=== PATIENT | male | born 1995 | race Caucasian/White ===

== ENCOUNTER 2016-05-29 15:49 | Emergency (ER) | payer OTHER ==
[~2016-05-29] VITALS: Ht 180.3 cm; Wt 200.0 kg
[~2016-05-29 15:49] MED LIST: ASPI1TAB14 PO
[2016-05-29 18:50] VITALS: BP 150/64
== END 2016-05-29 18:51 | disposition home or self-care (01) ==
LOC: EMS 15:53
DX: K02.9 Dental caries, unspecified (principal); J45.909 Unspecified asthma, uncomplicated
CPT/HCPCS: 99283

== ENCOUNTER 2016-07-04 22:03 | Emergency (ER) | payer OTHER ==
[~2016-07-04] VITALS: Ht 182.9 cm; Wt 113.6 kg
[2016-07-04 22:23] VITALS: BP 117/86
== END 2016-07-05 00:08 | disposition left against medical advice (07) ==
LOC: EMS 22:04
DX: K08.89 Other specified disorders of teeth and supporting structures (principal); J45.909 Unspecified asthma, uncomplicated

== ENCOUNTER 2016-11-01 22:22 | Emergency (ER) | payer SELFPAY ==
[~2016-11-01] VITALS: Ht 180.3 cm; Wt 86.0 kg
[2016-11-01] MEDS ORDERED: ALBU8HFA IH (22:26)
[2016-11-01] MEDS ORDERED: ALBUTEROL SULFATE 2.5 MG/0.5 ML NEB SOLUTION NEB ONE (22:45)
[2016-11-01] MEDS ORDERED: IPRATROPIUM BROMIDE 0.5 MG/2.5 ML NEB SOLUTION NEB ONE (22:45)
[2016-11-01] MEDS ORDERED: PredniSONE 20 MG TABLET PO ONE (23:15)
[2016-11-01 23:22] VITALS: BP 142/62
== END 2016-11-01 23:24 | disposition home or self-care (01) ==
LOC: EMS 22:24
DX: J45.909 Unspecified asthma, uncomplicated (principal); R03.0 Elevated blood-pressure reading, without diagnosis of hypertension
CPT/HCPCS: 94640; 99283; J7512; J7613

== ENCOUNTER 2019-01-12 04:51 | Emergency (ER) | payer SELFPAY ==
[~2019-01-12] VITALS: Ht 180.3 cm; Wt 104.5 kg
[~2019-01-12 04:51] MED LIST changes: +ALBU8HFA IH; -ASPI1TAB14 PO
[2019-01-12] MEDS ORDERED: FLUT110HFA IH (05:04)
[2019-01-12] MEDS ORDERED: IPRATROPIUM BROMIDE 0.5 MG/2.5 ML NEB SOLUTION NEB ONE (05:15)
[2019-01-12] MEDS ORDERED: ALBUTEROL SULFATE 2.5 MG/0.5 ML NEB SOLUTION NEB ONE (05:15)
[2019-01-12 06:15] VITALS: BP 117/72
[2019-01-12] MEDS ORDERED: PredniSONE 20 MG TABLET PO ONE (06:15)
[2019-01-12] MEDS ORDERED: ALBUTEROL SULFATE HFA 90 MCG/PUFF 8 GM INHALER IH ONE (06:15)
== END 2019-01-12 06:40 | disposition home or self-care (01) ==
LOC: EMS 04:55
DX: J45.901 Unspecified asthma with (acute) exacerbation (principal)
CPT/HCPCS: 94640; 99284; J7512; 94060; J3535

== ENCOUNTER 2019-04-23 16:09 | Emergency (ER) | payer MEDICAID ==
[~2019-04-23] VITALS: Ht 180.3 cm; Wt 81.8 kg
[~2019-04-23 16:09] MED LIST changes: -ALBU8HFA IH; +FLUT110HFA IH
[2019-04-23] MEDS ORDERED: DEXAMETHASONE 4 MG TABLET PO ONE (17:15)
[2019-04-23] MEDS ORDERED: ALBUTEROL SULFATE HFA 90 MCG/PUFF 8 GM INHALER IH ONE (17:15)
[2019-04-23] MEDS ORDERED: ALBUTEROL SULFATE 2.5 MG/0.5 ML NEB SOLUTION NEB ONE (17:15)
[2019-04-23] MEDS ORDERED: IPRATROPIUM BROMIDE 0.5 MG/2.5 ML NEB SOLUTION NEB ONE (17:15)
[2019-04-23 18:51] VITALS: BP 123/68
== END 2019-04-23 19:25 | disposition home or self-care (01) ==
LOC: EMS 16:10
DX: J45.909 Unspecified asthma, uncomplicated (principal)
CPT/HCPCS: 71046; 94640; 99284; J8540; J3535

== ENCOUNTER 2019-06-22 00:23 | Emergency (ER) | payer SELFPAY ==
[~2019-06-22] VITALS: Ht 180.3 cm; Wt 86.4 kg
[2019-06-22] MEDS ORDERED: ALBU8HFA IH (00:31)
[2019-06-22] MEDS ORDERED: ONDANSETRON HCL 4 MG/2 ML VIAL IVP ONE (01:30)
[2019-06-22] MEDS ORDERED: ONDANSETRON HCL 4 MG TABLET PO ONE (02:00)
[2019-06-22 02:17] LABS: APPEARANCE,URINE CLEAR (CLEAR); GLUCOSE, URINE (UA) 100 mg/dL (NEGATIVE); KETONES,URINE 15 mg/dL (NEGATIVE); LEUKOCYTE ESTERASE ,URINE NEGATIVE (NEGATIVE); NITRATE,URINE NEGATIVE (NEGATIVE); OCCULT BLOOD,URINE NEGATIVE (NEGATIVE); PROTEIN,URINE SEE CONFIRM (NEGATIVE)
[2019-06-22 02:21] LABS: BILIRUBIN,URINE PRELIM. POSITIVE (NEGATIVE)
[2019-06-22 02:25] LABS: ALANINE AMINOTRANSFERASE 25 U/L (12-78); ALBUMIN 5.1 g/dL (3.4-5.0); ALKALINE PHOSPHATASE 76 U/L (46-116); ANION GAP 11 mmol/L (8-16); ASPARTATE AMINOTRANSFERASE 17 U/L (15-37); BILIRUBIN,TOTAL 1.4 mg/dL (0.1-1.0); CALCIUM, TOTAL 9.9 mg/dL (8.8-10.5); CARBON DIOXIDE 36 mmol/L (22-29); CHLORIDE 85 mmol/L (98-107); CREATININE 1.44 mg/dL (0.60-1.30); GLOMERULAR FILTR. RATE CALC > 60 mL/min (>60); GLUCOSE,RANDOM 105 mg/dL (70-110); HCG,QUANTITATIVE < 1 mIU/mL (0-6); LIPASE 86 U/L (73-393); SODIUM SERUM 132 mmol/L (136-145); UREA NITROGEN, BLOOD 15 mg/dL (7-18)
[2019-06-22 02:36] LABS: MEAN CORPUSCULAR HEMOGLOBIN 30.6 pg (26.0-34.0); MEAN CORPUSCULAR VOLUME 87 fL (80-100); PLATELET COUNT (AUTO) 229 K/uL (150-450); RED BLOOD CELL COUNT(AUTO) 6.36 MIL/uL (4.50-5.90); RED CELL DISTRIBUTION WIDTH 13.7 % (11.5-14.5)
[2019-06-22 02:40] LABS: HEMOGLOBIN 19.5 g/dL (13.5-17.5)
[2019-06-22 02:41] LABS: HEMATOCRIT 55.6 % (41-53)
[2019-06-22 02:42] LABS: POTASSIUM 2.2 mmol/L (3.5-5.1)
[2019-06-22] MEDS ORDERED: POTASSIUM CHLORIDE 20 MEQ ER TABLET PO ONE ×2 (02:45→09:45)
[2019-06-22] MEDS ORDERED: SODIUM CHLORIDE 0.9% 1,000 ML IV ONE (02:45)
[2019-06-22] MEDS ORDERED: IOVERSOL 350 MG/ML 100 ML VIAL ONE (02:50)
[2019-06-22] MEDS ORDERED: SODIUM CHLORIDE 0.9% 100 ML ONE (02:50)
[2019-06-22 02:58] LABS: BAND NEUTROPHILS % (MANUAL) 0 % (0-5)
[2019-06-22] MEDS: POTASSIUM CHL 10 MEQ/WATER 50 ML IV SCH ×4 (02:58→06:25)
[2019-06-22 03:07] LABS: LYMPHOCYTES % (MANUAL) 42 % (22-44); MONOCYTES % (MANUAL) 12 % (2-9); SEGMENTED NEUTROPHILS % 46 % (40-70)
[2019-06-22 04:01] LABS: GLUCOSE,POINT OF CARE 103 MG/DL (70-110)
[2019-06-22 04:03] LABS: BACTERIA,URINE Rare /HPF (None Seen); RBC,URINE None Seen /HPF (0-2); SQUAMOUS EPITHELIAL CELL,UR Rare /LPF (None Seen); SULFOSALICYLIC ACID,URINE 1+ (Negative); WBC,URINE 0-2 /HPF (0-5); YEAST,URINE None Seen /HPF (None Seen)
[2019-06-22 09:55] VITALS: BP 121/70
== END 2019-06-22 10:02 | disposition home or self-care (01) ==
LOC: EMS 00:23
DX: E87.6 Hypokalemia (principal); E86.0 Dehydration; J45.909 Unspecified asthma, uncomplicated
CPT/HCPCS: 36415; 74177; 80053; 81001; 82948; 82962; 83690; 84132; 84702; 85025; 96365; 96366; 96375; 99285; J2405; J3480; J7030; J7050; Q0162; Q9967

== ENCOUNTER 2019-07-03 11:12 | Emergency (ER) | payer SELFPAY ==
[~2019-07-03] VITALS: Ht 180.3 cm; Wt 81.8 kg
[~2019-07-03 11:12] MED LIST changes: +ALBU8HFA IH; -FLUT110HFA IH
[2019-07-03 11:14] VITALS: BP 137/91
== END 2019-07-03 11:48 | disposition home or self-care (01) ==
LOC: EMS 11:15
DX: H01.001 Unspecified blepharitis right upper eyelid (principal); J45.909 Unspecified asthma, uncomplicated

== ENCOUNTER 2019-08-27 16:54 | Emergency (ER) | payer MEDICAID ==
[~2019-08-27] VITALS: Ht 180.3 cm; Wt 59.1 kg
[2019-08-27 17:04] VITALS: BP 129/90
== END 2019-08-27 17:27 | disposition home or self-care (01) ==
LOC: EMS 16:54
DX: J45.909 Unspecified asthma, uncomplicated (principal); R03.0 Elevated blood-pressure reading, without diagnosis of hypertension; F12.90 Cannabis use, unspecified, uncomplicated

== ENCOUNTER 2019-09-12 14:20 | Emergency (ER) | payer MEDICAID ==
[~2019-09-12] VITALS: Ht 180.3 cm; Wt 81.8 kg
[2019-09-12 14:21] VITALS: BP 126/83
[2019-09-12] MEDS ORDERED: LORA10TA7 PO (14:22)
== END 2019-09-12 15:32 | disposition home or self-care (01) ==
LOC: EMS 14:25
DX: J45.909 Unspecified asthma, uncomplicated (principal)
CPT/HCPCS: 99283; Z7502

== ENCOUNTER 2019-09-18 12:51 | Emergency (ER) | payer MEDICAID, OTHER ==
[~2019-09-18] VITALS: Ht 180.3 cm; Wt 81.8 kg
[~2019-09-18 12:51] MED LIST changes: +LORA10TA7 PO
[2019-09-18 12:55] VITALS: BP 115/74
== END 2019-09-18 14:01 | disposition home or self-care (01) ==
LOC: EMS 12:54
DX: K12.0 Recurrent oral aphthae (principal); F17.210 Nicotine dependence, cigarettes, uncomplicated; J45.909 Unspecified asthma, uncomplicated; F12.90 Cannabis use, unspecified, uncomplicated
CPT/HCPCS: Z7502

== ENCOUNTER 2019-09-26 12:50 | Emergency (ER) | payer OTHER ==
[~2019-09-26] VITALS: Ht 177.8 cm; Wt 75.0 kg
[2019-09-26 12:51] VITALS: BP 137/65
== END 2019-09-26 13:34 | disposition home or self-care (01) ==
LOC: EMS 13:00
DX: J45.909 Unspecified asthma, uncomplicated (principal); R03.0 Elevated blood-pressure reading, without diagnosis of hypertension; F12.90 Cannabis use, unspecified, uncomplicated
CPT/HCPCS: 99283; Z7502

== ENCOUNTER 2019-10-07 14:45 | Emergency (ER) | payer OTHER ==
[~2019-10-07] VITALS: Ht 182.9 cm; Wt 68.2 kg
[2019-10-07 14:47] VITALS: BP 128/58
== END 2019-10-07 16:00 | disposition home or self-care (01) ==
LOC: EMS 14:50
DX: J45.909 Unspecified asthma, uncomplicated (principal); Z76.0 Encounter for issue of repeat prescription; F12.90 Cannabis use, unspecified, uncomplicated
CPT/HCPCS: Z7502

== ENCOUNTER 2019-10-20 16:12 | Emergency (ER) | payer OTHER ==
[~2019-10-20] VITALS: Ht 177.8 cm; Wt 65.9 kg
[2019-10-20 16:14] VITALS: BP 129/78
== END 2019-10-20 17:01 | disposition home or self-care (01) ==
LOC: EMS 16:13
DX: J45.909 Unspecified asthma, uncomplicated (principal); F17.290 Nicotine dependence, other tobacco product, uncomplicated; F12.90 Cannabis use, unspecified, uncomplicated; Z79.899 Other long term (current) drug therapy
CPT/HCPCS: 99406

== ENCOUNTER 2020-09-08 17:11 | Emergency (ER) | payer OTHER ==
[~2020-09-08] VITALS: Ht 180.3 cm; Wt 68.2 kg
[2020-09-08] MEDS ORDERED: BECL10.6 IH (17:16)
[2020-09-08 17:26] VITALS: BP 139/78
== END 2020-09-08 19:33 | disposition left against medical advice (07) ==
LOC: EMS 17:11
DX: R25.2 Cramp and spasm (principal); Z53.21 Procedure and treatment not carried out due to patient leaving prior to being seen by health care provider

== ENCOUNTER 2020-09-10 06:28 | Emergency (ER) | payer OTHER ==
[~2020-09-10] VITALS: Ht 180.3 cm; Wt 72.7 kg
[~2020-09-10 06:28] MED LIST changes: +BECL10.6 IH
[2020-09-10] MEDS ORDERED: KETOROLAC TROMETHAMINE 30 MG/ML VIAL IVP ONE (07:15)
[2020-09-10] MEDS ORDERED: SODIUM CHLORIDE 0.9% 1,000 ML IV ONE (07:15)
[2020-09-10 07:43] LABS: ANION GAP 9 mmol/L (8-16); CALCIUM, TOTAL 9.4 mg/dL (8.8-10.5); CARBON DIOXIDE 27 mmol/L (22-29); CHLORIDE 104 mmol/L (98-107); GLOMERULAR FILTR. RATE CALC > 60 mL/min (>60); GLUCOSE,RANDOM 83 mg/dL (70-110); POTASSIUM 3.9 mmol/L (3.5-5.1); SODIUM SERUM 140 mmol/L (136-145); UREA NITROGEN, BLOOD 5 mg/dL (7-18)
[2020-09-10 07:46] LABS: BASOPHILS % (AUTO) 0.6 % (0.0-2.0); EOSINOPHILS % (AUTO) 1.4 % (1.0-6.0); HEMOGLOBIN 17.3 g/dL (13.5-17.5); LYMPHOCYTES # (AUTO) 1.6 K/uL (1.0-4.8); LYMPHOCYTES % (AUTO) 30.9 % (22.0-44.0); MEAN CORPUSCULAR HEMOGLOBIN 30.5 pg (26.0-34.0); MEAN CORPUSCULAR HGB CONC 33.3 G/dL (31.0-37.0); MEAN CORPUSCULAR VOLUME 92 fL (80-100); MONOCYTES # (AUTO) 0.4 K/uL (0.1-1.0); MONOCYTES % (AUTO) 8.1 % (2.0-9.0); PLATELET COUNT (AUTO) 202 K/uL (150-450); RED BLOOD CELL COUNT(AUTO) 5.69 MIL/uL (4.50-5.90); RED CELL DISTRIBUTION WIDTH 14.1 % (11.5-14.5)
[2020-09-10 08:40] VITALS: BP 151/93
== END 2020-09-10 08:41 | disposition home or self-care (01) ==
LOC: EMS 06:31
DX: R53.1 Weakness (principal); R25.1 Tremor, unspecified
CPT/HCPCS: 36415; 80048; 83735; 85025; 96361; 96374; 99283; J1885; J7030

== ENCOUNTER 2020-09-20 11:27 | Emergency (ER) | payer OTHER ==
[~2020-09-20] VITALS: Ht 180.3 cm; Wt 70.5 kg
[2020-09-20 11:27] VITALS: BP 111/78
[~2020-09-20 11:27] MED LIST changes: -LORA10TA7 PO
[2020-09-20] MEDS ORDERED: HydrOXYzine PAMOATE 25 MG CAPSULE PO ONE (12:30)
== END 2020-09-20 13:11 | disposition home or self-care (01) ==
LOC: EMS 11:46
DX: F41.9 Anxiety disorder, unspecified (principal); J45.909 Unspecified asthma, uncomplicated; F17.210 Nicotine dependence, cigarettes, uncomplicated; F12.90 Cannabis use, unspecified, uncomplicated
CPT/HCPCS: 99283

== ENCOUNTER 2020-12-10 02:43 | Emergency (ER) | payer OTHER ==
[~2020-12-10] VITALS: Ht 180.3 cm; Wt 59.1 kg
[2020-12-10 03:19] LABS: BASOPHILS % (AUTO) 0.6 % (0.0-2.0); HEMATOCRIT 45.1 % (41-53); HEMOGLOBIN 15.2 g/dL (13.5-17.5); LYMPHOCYTES # (AUTO) 2.6 K/uL (1.0-4.8); LYMPHOCYTES % (AUTO) 33.5 % (22.0-44.0); MEAN CORPUSCULAR HEMOGLOBIN 30.9 pg (26.0-34.0); MEAN CORPUSCULAR HGB CONC 33.8 G/dL (31.0-37.0); MEAN CORPUSCULAR VOLUME 92 fL (80-100); MONOCYTES # (AUTO) 0.6 K/uL (0.1-1.0); MONOCYTES % (AUTO) 7.5 % (2.0-9.0); NEUTROPHILS # (AUTO) 4.3 K/uL (1.8-7.7); NEUTROPHILS % (AUTO) 56.4 % (40.0-70.0); PLATELET COUNT (AUTO) 194 K/uL (150-450); RED BLOOD CELL COUNT(AUTO) 4.93 MIL/uL (4.50-5.90); RED CELL DISTRIBUTION WIDTH 14.2 % (11.5-14.5)
[2020-12-10 03:26] LABS: ANION GAP 8 mmol/L (8-16); CALCIUM, TOTAL 8.8 mg/dL (8.8-10.5); CARBON DIOXIDE 31 mmol/L (22-29); CHLORIDE 104 mmol/L (98-107); CREATININE 1.09 mg/dL (0.60-1.30); GLOMERULAR FILTR. RATE CALC > 60 mL/min (>60); GLUCOSE,RANDOM 102 mg/dL (70-110); POTASSIUM 3.5 mmol/L (3.5-5.1); SODIUM SERUM 143 mmol/L (136-145); UREA NITROGEN, BLOOD 7 mg/dL (7-18)
[2020-12-10 03:32] LABS: ALANINE AMINOTRANSFERASE 36 U/L (12-78); ALBUMIN 4.1 g/dL (3.4-5.0); ALKALINE PHOSPHATASE 66 U/L (46-116); ASPARTATE AMINOTRANSFERASE 17 U/L (15-37); BILIRUBIN,TOTAL 0.6 mg/dL (0.1-1.0); TOTAL PROTEIN, SERUM 7.6 g/dL (6.4-8.2)
[2020-12-10] MEDS ORDERED: LORazepam 1 MG TABLET PO ONE ×2 (04:00→04:30)
[2020-12-10 04:20] VITALS: BP 129/65
== END 2020-12-10 05:28 | disposition home or self-care (01) ==
LOC: EMS 02:44
DX: F41.9 Anxiety disorder, unspecified (principal); R06.02 Shortness of breath; J45.909 Unspecified asthma, uncomplicated; F17.210 Nicotine dependence, cigarettes, uncomplicated; F12.90 Cannabis use, unspecified, uncomplicated
CPT/HCPCS: 71045; 80053; 84484; 85025; 93005; 99285; 36415-L1; 36415-TC